=== PATIENT | female | born 1970 | race Caucasian/White ===

== ENCOUNTER 2019-12-19 19:38 | Emergency (ER) | payer MEDICAID ==
[2019-12-19] MEDS ORDERED: CLINDAMYCIN 150 MG CAP PO ONE (19:55)
--- NOTE | 2019-12-19 19:57 | Emergency Department Record ---
History of Present Illness - General Chief complaint: Facial Swelling Stated complaint: FACIAL SWELLING Time Seen by Provider: 12/19/19 19:39 Source: Patient Mode of Arrival: Ambulatory Limitations: No limitations - History of Present Illness Initial Comments: 49 yo female presents to ED for evaluation of soft-tissue swelling to the left mandibular region that began this morning, worsened while eating dinner this evening. Patient denies pain with chewing, but reports pain while eating, described as the feeling you get when eating "sour things". Patient denies fevers, chills, or recent illness. Patient also reports that she was fully immunized during childhood. Patient denies health problems at her baseline. MD Complaint: Facial swelling Onset/Timin -: Minutes(s) Exposure: Unknown Symptoms: Facial swelling Severity: Mild Treatment Prior to Arrival: None Previous Allergy History: None - Related Data Previous Rx's Medication Instructions Recorded Clindamycin HCl 300 mg PO Q6H #27 capsule 12/19/19 Fluconazole [Diflucan] 150 mg PO ONCE #1 tab 12/19/19 Allergies Allergy/AdvReac Type Severity Reaction Status Date / Time codeine Allergy Severe face and Unverified 05/15/17 12:52 ears red, bad taste in mouth, general malaise, itch Penicillins Allergy Severe Unverified 05/15/17 12:13 amoxicillin Allergy Intermediate VOMITING Unverified 04/02/17 09:35 NSAIDS (Non-Steroidal Allergy Mild stomach Unverified 05/15/17 12:13 Anti-Inflamma ache fluoxetine HCl [From Prozac] AdvReac Intermediate Chest Unverified 04/02/17 09:35 Tightness ibuprofen [From Motrin] AdvReac Intermediate NAUSEA Unverified 04/02/17 09:35 Travel/Exposure Screening - Travel/Exposure Within Last 30 Days Have you traveled within the last 30 days?: No - Travel/Exposure Within Last Year Have you traveled outside the [place] in the last year?: No - Additonal Travel/Exposure Details Have you been exposed to anyone with a communicable illness?: No - Travel Symptoms Symptom Screening: None Review of Systems Constitutional: Denies: Chills, Fever, Malaise, Night sweats Eyes: Denies: Eye discharge, Eye pain ENT: Denies: Congestion, Ear pain, Epistaxis Respiratory: Denies: Cough, Dyspnea Cardiovascular: Denies: Chest pain, Dyspnea on exertion Endocrine: Denies: Fatigue, Heat or cold intolerance Gastrointestinal: Denies: Abdominal pain, Nausea, Vomiting Genitourinary: Denies: Incontinence, Retention Musculoskeletal: Denies: Arthralgia, Back pain Skin: Denies: Bruising, Change in color Neurological: Denies: Abnormal gait, Confusion, Headache, Tingling, Tremors Psychiatric: Denies: Anxiety Hematological/Lymphatic: Denies: Anemia, Blood Clots Past Medical History - SOCIAL HISTORY Smoking Status: Current every day smoker Alcohol Use: Occasional Drug Use: None - RESPIRATORY Hx Respiratory Disorders: Yes Hx Asthma: Yes - CARDIOVASCULAR Hx Cardio Disorders: Yes Hx Irregular Heartbeat: Yes (rapid) - NEURO Hx Neuro Disorders: No - GI Hx GI Disorders: Yes Hx Reflux: Yes Hx Pancreatitis: Yes (single event) - Hx Genitourinary Disorders: Yes Comment:: cKD stage 2 - ENDOCRINE Hx Endocrine Disorders: No - MUSCULOSKELETAL Hx Musculoskeletal Disorders: Yes Comment:: DJD - PSYCH Hx Psych Problems: Yes Hx Depression: Yes - HEMATOLOGY/ONCOLOGY Hx Hematology/Oncology Disorders: Yes Hx Anemia: Yes Family Medical History Any Significant Family History?: No Hx Cancer: Father, Grandparents Hx Heart Disease: Grandparents Physical Exam - General General Appearance: Alert, Oriented x3, Cooperative, Mild distress Limitations: No limitations - Head Head exam: Atraumatic Head exam detail: General tenderness. negative: Abrasion, Contusion, Lopes's sign, Hematoma, Laceration Image of Face/Head: 1 - STS overlying the parotid gland on examination, no erythema or flucutance are present on examination - Eye Eye exam: Normal appearance. negative: Conjunctival injection, Periorbital swelling, Periorbital tenderness, Scleral icterus - ENT Ear exam: negative: Auricular hematoma, Auricular trauma Nasal Exam: negative: Active bleeding, Discharge, Dried blood, Foreign body Mouth exam: Other (No calculus is present on examination of the salivary duct opening). negative: Drooling, Laceration, Muffled voice, Tongue elevation Teeth exam: Normal inspection Throat exam: negative: Tonsillar erythema, Tonsillomegaly, R peritonsillar mass, L peritonsillar mass - Neck Neck exam: Normal inspection. negative: Meningismus, Tenderness - Respiratory Respiratory exam: Normal lung sounds bilaterally. negative: Respiratory distress, Rhonchi, Stridor, Wheezes - Cardiovascular Cardiovascular Exam: Regular rate, Normal rhythm, Normal heart sounds - GI/Abdominal GI/Abdominal exam: Soft. negative: Distended, Rebound, Rigid, Tenderness - Rectal Rectal exam: Deferred - exam: Deferred - Extremities Extremities exam: Normal inspection. negative: Pedal edema, Tenderness - Back Back exam: Denies: CVA tenderness (R), CVA tenderness (L) - Neurological Neurological exam: Alert, Normal gait, Oriented X3 - Psychiatric Psychiatric exam: Normal affect, Normal mood - Skin Skin exam: Normal color. negative: Abrasion Type of lesion: negative: abrasion Course Vital Signs 12/19/19 19:45 Temperature 98.5 F Pulse Rate [ 96 H Right] Respiratory 20 Rate Blood Pressure 140/96 [Left Arm] Pulse Ox 100 - Reevaluation(s) Reevaluation #1: 12/19/19 20:03 Patient was seen an examined. No clinical evidence for Mumps in the patient's history of vaccination status. Examination appears c/w parotiditis. Patient was instructed to use lemon candy to express saliva, warm compresses, and Clindamycin for Staph aureus coverage. Patient is otherwise well appearing and asymptomatic, appears stable for discharge with outpatient treatment as discussed above. Disposition Disposition: Discharge Clinical Impression: Acute parotitis Disposition: Home, Self-Care Condition: (2) Stable Instructions: Sialoadenitis (ED) Additional Instructions: Return to ED if your symptoms worsen or if you have any concerns. Clindamycin and Diflucan as directed. Lemon drops as directed, warm compresses as discussed. Follow-up with your family doctor in 3-5 days as directed. Prescriptions: Clindamycin HCl 300 mg PO Q6H #27 capsule Fluconazole [Diflucan] 150 mg PO ONCE #1 tab Forms: Patient Portal Access Time of Disposition: 19:57 Quality - Quality Measures Quality Measures: N/A - Blood Pressure Screening Does Patient Have Any of the Following: No Blood Pressure Classification: Hypertensive Reading Systolic Measurement: 140 Diastolic Measurement: 96 Screening for High Blood Pressure: < First Hypertensive BP, F/U Documented > [G8950] First Hypertensive Follow-up Interventions: Referral to alternative/primary care provider.
== END 2019-12-19 20:13 | disposition home or self-care (01) ==
LOC: ER 19:38
DX: K11.21 Acute sialoadenitis (principal); R22.0 Localized swelling, mass and lump, head; F17.210 Nicotine dependence, cigarettes, uncomplicated
CPT/HCPCS: 99283